=== PATIENT | male | born 1990 | race Caucasian/White ===

== ENCOUNTER 2022-01-06 21:50 | Outpatient (CLI) | payer OTHER | END 2022-01-06 23:59 | disposition short-term general hospital (02) | LOC: EMS 21:50 | DX: S01.01XA Laceration without foreign body of scalp, initial encounter (principal); W18.39XA Other fall on same level, initial encounter; Y92.481 Parking lot as the place of occurrence of the external cause; Z72.89 Other problems related to lifestyle | CPT/HCPCS: A0425; A0429 ==

== ENCOUNTER 2022-02-02 08:37 | Outpatient (CLI) | payer OTHER ==
--- NOTE | 2022-02-02 09:45 | MRI Report ---
PROCEDURE: Brain W/O INDICATIONS: UNSPECIFIED COMA TECHNIQUE: Noncontrast axial T1 spin echo, axial T2 fast spin echo, sagittal and axial FLAIR, coronal T2 fast sp in echo, axial gradient echo, axial diffusion and ADC through the brain. COMPARISON: None. FINDINGS: Image quality: Excellent. CSF Spaces: Basal cisterns are patent. No extra-axial fluid collections. Ventricles are normal in size and shape. Brain: No intracranial masses or hemorrhage. Cr/white matter interface is normal. Brainstem appe ars normal. Diffusion-weighted images demonstrate no acute ischemic insult. No chronic ischemic ins ults. Normal intravascular flow voids are present. Incidental note is made of a cavum of septum pel lucidum. This is of likely no clinical consequence, when incidentally discovered in isolation. Skull and face: Calvarium has normal marrow signal. Orbits appear normal. Sinuses: Moderate mucosal thickening is seen within the inferior left maxillary sinus. There is a muc ous cyst along the inferior right maxillary sinus. Minimal mucosal thickening is seen elsewhere withi n the paranasal sinuses. No significant abnormal fluid can be seen within the mastoid air cells. IMPRESSION: Unremarkable intracranial study. No findings of hemorrhage or brain edema are seen. Reviewed by: Mariusz Sinclair MD on 02/02/2022 8:44 AM NIK Approved by: Mariusz Sinclair MD on 02/02/2022 8:44 AM NIK Station ID: [id number]
== END 2022-02-02 08:38 | disposition home or self-care (01) ==
LOC: DI 08:37
PROVIDERS: ATTEND Student in an Organized Health Care Education/Training Program
DX: R40.20 Unspecified coma (principal)